=== PATIENT | female | born 1985 | race African-American/Black ===

== ENCOUNTER 2016-04-06 | Outpatient (CLI) | payer OTHER | END 2016-04-06 09:20 | disposition critical access hospital (66) | CPT/HCPCS: A0425; A0429 ==

== ENCOUNTER 2016-04-06 09:38 | Emergency (ER) | payer OTHER ==
[2016-04-06 09:44] VITALS: BP 123/68
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
[2016-04-06] MEDS ORDERED: IBUPROFEN 600 MG TABLET PO ONE (10:04)
[2016-04-06] MEDS ORDERED: ACETAMINOPHEN 325 MG TABLET PO ONE (10:05)
[2016-04-06] MEDS: IBUPROFEN 600 MG TABLET PO STA (10:07)
[2016-04-06] MEDS: ACETAMINOPHEN 325 MG TABLET PO STA (10:08)
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
== END 2016-04-06 11:06 | disposition home or self-care (01) ==
LOC: EDUNIT# → ED 09:38
DX: S29.012A Strain of muscle and tendon of back wall of thorax, initial encounter (principal); S16.1XXA Strain of muscle, fascia and tendon at neck level, initial encounter; V43.52XA Car driver injured in collision with other type car in traffic accident, initial encounter; Y92.410 Unspecified street and highway as the place of occurrence of the external cause
CPT/HCPCS: 1040M; 72040; 72070; 99283

== ENCOUNTER 2016-04-10 09:06 | Emergency (ER) | payer OTHER ==
[2016-04-10] MEDS ORDERED: HYDROcod/ACETAM 5/325 MG TABLET PO STA (10:08)
[2016-04-10] MEDS ORDERED: CYCLOBENZAPRINE 10 MG TABLET PO STA (10:08)
[2016-04-10] MEDS ORDERED: HYDROcod/ACETAM 5/325 MG TABLET ONE (10:11)
[2016-04-10] MEDS ORDERED: CYCLOBENZAPRINE 10 MG TABLET PO ONE (10:11)
== END 2016-04-10 11:03 | disposition home or self-care (01) ==
DX: S29.012D Strain of muscle and tendon of back wall of thorax, subsequent encounter (principal); V89.2XXD Person injured in unspecified motor-vehicle accident, traffic, subsequent encounter
CPT/HCPCS: 71101; 99283; A9270

== ENCOUNTER 2017-04-06 20:15 | Emergency (ER) | payer OTHER ==
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
[2017-04-06] MEDS ORDERED: LIDOCAINE 2% 10 ML MDV SUBQ STA (21:47)
[2017-04-06] MEDS ORDERED: IBUPROFEN 600 MG TABLET PO STA (22:19)
[2017-04-06] MEDS ORDERED: BACITRACIN OINT TOP ONE (22:20)
[2017-04-06 22:38] VITALS: BP 140/97
== END 2017-04-06 22:34 | disposition home or self-care (01) ==
LOC: ED 20:15
DX: S61.305A Unspecified open wound of left ring finger with damage to nail, initial encounter (principal); W22.8XXA Striking against or struck by other objects, initial encounter
CPT/HCPCS: 11760; 99282; 99283; A9270

== ENCOUNTER 2019-05-30 14:41 | Outpatient (CLI) | payer OTHER | END 2019-05-30 14:42 | disposition home or self-care (01) | LOC: COV 14:41 | PROVIDERS: ATTEND Family Medicine | DX: R50.9 Fever, unspecified (principal) | CPT/HCPCS: 81599 ==

== ENCOUNTER 2019-08-02 10:19 | Emergency (ER) | payer OTHER ==
--- NOTE | 2019-08-02 10:55 | ED Physician Documentation ---
History of Present Illness - Stated complaint Stated Complaint: CHEST PX - Chief complaint Chief Complaint: Cardiac - History obtained from History obtained from: Patient - History of Present Illness Timing: Yesterday Pain level max: 3 Pain level now: 0 - Additonal information Additional information: 34-year-old female complains of intermittent sharp left-sided chest pain for the past 24 hours. Worse with breathing and palpation. She does not smoke. Is not on control. No recent surgeries. No recent immobilization. No recent illness. Has not taken anything for this. 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 HEENT: None Psych: None Musculoskeletal: None Derm: None - Past Surgical History Past Surgical History: Yes - Present Medications Home Medications: Ambulatory Orders Medication Instructions Recorded Confirmed No Known Home Medications 08/02/19 08/02/19 - Allergies Allergies/Adverse Reactions: Allergies Allergy/AdvReac Type Severity Reaction Status Date / Time No Known Drug Allergies Allergy Verified 08/02/19 10:25 - Social History Does the pt smoke?: No Smoking Status: Never smoker Does the pt drink ETOH?: Yes Does the pt have substance abuse?: No - Immunizations Immunizations are current?: Yes - POLST Patient has POLST: Yes POLST Status: Full Code PD ED PE NORMAL - Vitals Vital signs reviewed: Yes - General General: Alert and oriented X 3, No acute distress, Well developed/nourished - HEENT HEENT: Moist mucous membranes - Neck Neck: Supple, no meningeal sign - Cardiac Cardiac: RRR, No murmur, Strong equal pulses, Other (Tender to palpation across the anterior left chest wall, costochondral junction approximately rib 5. Reproduces her pain. No crepitus. No ecchymosis.) - Respiratory Respiratory: No respiratory distress, Clear bilaterally - Abdomen Abdomen: Soft, Non tender, Non distended - Derm Derm: Warm and dry - Extremities Extremities: No edema, No calf tenderness / cord - Neuro Neuro: Alert and oriented X 3 - Psych Psych: Normal mood, Normal affect Results - Vitals Vitals: Vital Signs - 24 hr 08/02/19 08/02/19 10:27 11:51 Temperature 36.9 C 37.0 C Heart Rate 81 77 Respiratory 17 14 Rate Blood Pressure 137/85 H 127/86 H O2 Saturation 100 100 Oxygen O2 Source Room air - EKG (time done) 1041 Rate: Rate (enter#) (69) Rhythm: NSR [place]: Normal Intervals: Normal [place] QRS: Normal Ischemia: Normal ST segments - Labs Labs: Laboratory Tests 08/02/19 08/02/19 08/02/19 10:55 10:55 10:55 WBC 5.8 RBC 5.61 H Hgb 13.6 Hct 42.5 MCV 75.8 L MCH 24.2 L MCHC 32.0 RDW 13.6 Plt Count 327 MPV 9.7 Neut # (Auto) 2.9 Lymph # (Auto) 2.3 Page # (Auto) 0.5 Eos # (Auto) 0.1 Baso # (Auto) 0.1 Absolute Nucleated RBC 0.00 Nucleated RBC % 0.0 Sodium 137 Potassium 3.7 Chloride 101 Carbon Dioxide 28 Anion Gap 8.0 BUN 11 Creatinine 0.7 Estimated GFR (MDRD) 117 Glucose 96 Calcium 9.1 Total Bilirubin 0.9 AST 26 ALT 17 Alkaline Phosphatase 39 L Troponin I High Sens 2.8 Total Protein 7.1 Albumin 4.2 Globulin 2.9 Albumin/Globulin Ratio 1.4 Lipase 45 - Rads (name of study) cxr Radiology: Prelim report reviewed, EMP read contemporaneously, See rad report (No acute disease) PD MEDICAL DECISION MAKING - ED course Complexity details: reviewed results, re-evaluated patient, considered differential (No ST elevation ID, no aortic dissection, no PE, no tension pneumothorax, no aortic aneurysm), d/w patient ED course: Patient with atypical reproducible chest pain. Appears most consistent with costochondritis. She is well-appearing, nontoxic. Afebrile. No evidence of pulmonary embolus. PERC negative. Normal chest x-ray. We will continue Motrin and Tylenol as needed for pain. No evidence of cardiac origin for her pain either. Patient counseled regarding signs and symptoms for which I believe and urgent re-evaluation would be necessary. Patient with good understanding of and agreement to plan and is comfortable going home at this time This document was made in part using voice recognition software. While efforts are made to proofread this document, sound alike and grammatical errors may occur. Departure - Departure Disposition: 01 Home, Self Care Clinical Impression: Costochondritis, Atypical chest pain Condition: Good Instructions: ED Chest Pain Atypical Unkn Cause, ED Chest Pain Costochondritis Follow-Up: Your,doctor in 1 week [Other] Comments: Return if you worsen. Follow-up with your doctor for further care. Your testing is normal today. Discharge Date/Time: 08/02/19 12:12
[2019-08-02 11:05] LABS: BASOPHILS # (AUTO) 0.1 10^3/uL (0.0-0.1); EOSINOPHILS # (AUTO) 0.1 10^3/uL (0.0-0.7); EOSINOPHILS % (AUTO) 1.7 %; HGB - HEMOGLOBIN 13.6 g/dL (12.0-16.0); LYMPHOCYTES # (AUTO) 2.3 10^3/uL (1.5-3.5); LYMPHOCYTES % (AUTO) 39.3 %; MEAN CORPUSCULAR HEMOGLOBIN 24.2 pg (27.0-31.0); MEAN CORPUSCULAR VOLUME 75.8 fL (81.0-99.0); MEAN PLATELET VOLUME 9.7 fL (7.9-10.8); MONOCYTES # (AUTO) 0.5 10^3/uL (0.0-1.0); MONOCYTES % (AUTO) 8.2 %; NEUTROPHILS # (AUTO) 2.9 10^3/uL (1.5-6.6); NEUTROPHILS % (AUTO) 49.6 %; PLT - PLATELET COUNT 327 10^3/uL (130-450); RED BLOOD COUNT 5.61 10^6/uL (4.20-5.40); RED CELL DISTRIBUTION WIDTH 13.6 % (12.0-15.0); WHITE BLOOD COUNT 5.8 x10^3/uL (4.8-10.8)
--- NOTE | 2019-08-02 11:17 | XRAY Report ---
PROCEDURE: Chest 1 View X-Ray INDICATIONS: Chest Pain TECHNIQUE: One view of the chest was acquired. COMPARISON: Chest xray 04/10/19 FINDINGS: Surgical changes and devices: None. Lungs and pleura: No pleural effusions or pneumothorax. Lungs are clear. Mediastinum: Mediastinal contours appear normal. Heart size is normal. Bones and chest wall: No suspicious bony lesions. Overlying soft tissues appear unremarkable. IMPRESSION: No acue pulmonary process. Reviewed by: Klaudia Patle MD on 08/02/2019 11:16 AM PDT Approved by: Klaudia Patel MD on 08/02/2019 11:16 AM PDT Station ID: [id number]
[2019-08-02 11:19] LABS: ALBUMIN 4.2 g/dL (3.2-5.5); ALBUMIN/GLOBULIN RATIO 1.4 (1.0-2.2); BILIRUBIN,TOTAL 0.9 mg/dL (0.2-1.0); CALCIUM 9.1 mg/dL (8.5-10.3); CREATININE 0.7 mg/dL (0.4-1.0); TOTAL PROTEIN 7.1 g/dL (6.7-8.2)
[2019-08-02] MEDS ORDERED: ACETAMINOPHEN 325 MG TABLET PO STA (11:45)
[2019-08-02 11:52] VITALS: BP 127/86
== END 2019-08-02 12:12 | disposition home or self-care (01) ==
LOC: ED 10:19
DX: M94.0 Chondrocostal junction syndrome [Tietze] (principal); R07.89 Other chest pain
CPT/HCPCS: 36415; 71045; 80053; 83690; 84484; 85025; 93005; 99284; A9270